=== PATIENT | male | born 1945 | race Caucasian/White ===

== ENCOUNTER 2023-06-22 13:06 | Emergency (ER) | payer MEDICARE, SELFPAY ==
[2023-06-22 13:07] VITALS: BP 140/80; PULSE 73; RESP 18; TEMP 36.3; O2SAT 94
--- NOTE | 2023-06-22 14:40 | EKG12_ITS ---
Test Reason : FALL Blood Pressure : / mmHG Vent. Rate : 061 BPM Atrial Rate : 061 BPM P-R Int : 172 ms QRS Dur : 116 ms QT Int : 450 ms P-R-T Axes : 045 -23 032 degrees QTc Int : 453 ms Normal sinus rhythm Left ventricular hypertrophy with QRS widening and repolarization abnormality ( R in aVL , Francis pr oduct ) Cannot rule out Septal infarct , age undetermined Abnormal ECG Confirmed by Basim Guan ([id number]), editor news DEEP GARCIA ([id number]) on 06/24/2023 11:02:11 AM Referred By: SARAHI Confirmed By:Basim Guan
--- NOTE | 2023-06-22 14:40 | RAD_ITS ---
INDICATION: injury EXAMINATION/TECHNIQUE: X-RAY - XR Spine Lumbar 2 or 3 Views COMPARISON: No relevant prior comparison study available FINDINGS: VERTEBRAE: Preserved vertebral body height. No fracture. No spondylolisthesis. Preservation of the normal lumbar lordosis. No substantial scoliosis. DISCS: Narrowing of the disc spaces of L3-4, L4-L5 and L5-S1. Endplate spondylosis at multiple levels. INCLUDED ABDOMEN: Atherosclerotic calcifications of the abdominal aorta. RAD/Lumbar Spine 2 or 3 Views IMPRESSION: 1. Degenerative changes of the lumbar spine. 2. No evidence of acute fracture. Electronically Signed: Ed Robles MD at 15:31 EDT ,
--- NOTE | 2023-06-22 14:40 | RAD_ITS ---
INDICATION: injury EXAMINATION/TECHNIQUE: X-RAY - LEFT XR Shoulder Min 2 Views 5 VIEWS COMPARISON: No relevant prior comparison study available FINDINGS: SOFT TISSUES: No soft tissue swelling or gas. No radiopaque foreign body. BONES/JOINTS: No acute fracture or subluxation. Narrowing of the space between the acromion process and humeral head which may impinge on the rotator cuff.. No sclerotic or destructive changes observed. RAD/Shoulder min 2 Views IMPRESSION: Degenerative changes. No evidence of acute fracture. Electronically Signed: Ed Robles MD at 15:35 EDT ,
--- NOTE | 2023-06-22 14:41 | ED.VIS.FALL ---
HPI HPI - Fall History of Present Illness Chief Complaint: Fall Informant: patient Narrative Narrative: Patient presents for evaluation after fall at home. He reportedly fell at home last evening injuring his left shoulder and his back. His neighbor drove him to the hospital today and states that he has been falling more frequently. Patient states he gets lightheaded and falls. He is a poor historian. His primary care physician is in [place] and I do not have prior records on him here. He does report a history of seizures that he takes medication for daily. He does not know the name of the medication. [facility] Medical History Seizures Allergy/AdvReac Type Severity Reaction Status Date / Time No Known Allergies Allergy Verified 06/22/23 13:09 Social History Smoking Status: Former smoker ROS ROS ED Constitutional Constitutional ED: Denies chills or fever(s) Eyes Eyes: Denies discharge from eye(s) ENT ENT ED: Denies discharge from eye(s), rhinorrhea or sore throat Cardiovascular Cardiovascular: Denies chest pain or palpitations Respiratory/Chest Respiratory/Chest: Reports cough; Denies dyspnea Gastrointestinal Gastrointestinal: Denies abdominal pain, diarrhea, nausea or vomiting Genitourinary Genitourinary ED: Denies dysuria Musculoskeletal Musculoskeletal: Reports back pain and extremity pain Integumentary Denies Abrasions or rash Neurologic Neurologic: Denies headache(s) or weakness Psychiatric Psychiatric: Denies anxiety or depression Allergic/Immunologic Allergic/Immunologic ED: Denies lip swelling or urticaria EXAM Physical Exam Const Vital Signs: 06/22/23 13:07 06/22/23 13:56 06/22/23 15:10 Temperature 97.4 F L Temperature Source Temporal Pulse Rate 73 85 Respiratory Rate 18 22 H Respiratory Effort Normal Non-Labored Respiratory Depth Normal Respiratory Pattern Normal Normal Blood Pressure 140/80 H Blood Pressure Mean 100 Pulse Ox 94 Oxygen Delivery Method Room Air Room Air 06/22/23 16:17 Temperature Temperature Source Pulse Rate 70 Respiratory Rate 22 H Respiratory Effort Respiratory Depth Respiratory Pattern Blood Pressure 133/86 H Blood Pressure Mean 101 Pulse Ox 94 Oxygen Delivery Method Room Air Positive well nourished and well developed General Appearance ED: well developed HEENT HEENT Narrative: Small scabbed wound to the left parietal scalp from fall 2 weeks ago. Eyes EOMs intact bilaterally Neck full ROM Neck Narrative: No C-spine tenderness. Chest Wall inspection of chest normal and palpation of chest normal Resp normal respiratory effort Resp Narrative: Mild rales bilaterally. Cardio regular rate and regular rhythm GI non-tender and non-distended Back/Spine Back/Spine Narrative: Mild tenderness to the paraspinal region of the lumbar spine. No abrasions or ecchymosis. No midline tenderness. Extremity Extremity Narrative: Mild tenderness to palpation of the left shoulder. No obvious deformity. Able to raise his arm above his head without difficulty. Neuro oriented x3, moves all extremities and no sensory deficits noted Motor Exam: strength 5/5 throughout Psych mental status grossly normal MDM MDM MDM Narrative Medical decision making narrative: Given the patient has had increased frequency of falls recently, we will obtain an EKG and place patient on nut tightener. Labwork obtained to evaluate for leukocytosis, anemia, and electrolyte derangement. Will obtain a chest x-ray along with left shoulder and lumbar spine x-rays given his fall and injury along with his rales and cough. He will be given a DuoNeb treatment. History & Record Review Discussion w/independent historian: Patient and Friend Lab Data Attestation: I reviewed the patient's lab results. Labs: Laboratory Results - last 24 hr 06/22/23 06/22/23 14:58 15:48 WBC 10.7 RBC 4.71 Hgb 12.7 L Hct 40.7 MCV 86.4 MCH 27.0 MCHC 31.2 L RDW Std Deviation 44.8 H RDW Coeff of Jarod 14.0 Plt Count 298 MPV 9.2 Immature Gran % (Auto) 1.100 H Neut % (Auto) 81.9 H Lymph % (Auto) 9.0 L Warren % (Auto) 7.1 Eos % (Auto) 0.4 Baso % (Auto) 0.5 Absolute Neuts (auto) 8.7 H Absolute Lymphs (auto) 0.96 Nucleated RBC % 0 Sodium 137 Potassium 3.9 Chloride 103 Carbon Dioxide 25.0 Anion Gap 9 BUN 23 H Creatinine 1.14 Est GFR (MDRD) Af Amer 80 Est GFR (MDRD) Non-Af 66 BUN/Creatinine Ratio 20.2 H Glucose 103 Calcium 8.8 Urine Color Yellow Urine Clarity Clear Urine pH 5.0 Ur Specific Divide 1.015 Urine Protein 100 H Urine Glucose (UA) Normal Urine Ketones 5 H Urine Occult Blood 10 H Urine Nitrite Negative Urine Bilirubin Negative Urine Urobilinogen 4 H Ur Leukocyte Esterase Negative Radiography Diagnostic Testing: Clinical Impression(s) from Imaging Studies Lumbar Spine X-Ray 06/22/23 14:40 IMPRESSION: 1. Degenerative changes of the lumbar spine. 2. No evidence of acute fracture. Electronically Signed: Ed Robles MD at 15:31 EDT Reading Location ID and State: [facility] / [place] Tel , Service support , Shoulder X-Ray 06/22/23 14:40 IMPRESSION: Degenerative changes. No evidence of acute fracture. Electronically Signed: Ed Robles MD at 15:35 EDT Reading Location ID and State: [facility] / [place] Tel , Service support , Chest X-Ray 06/22/23 15:10 IMPRESSION: 1. COPD changes. 2. No active pulmonary disease. Electronically Signed: Ed Robles MD at 15:30 EDT , Treatment and Re-Evaluation Narrative: CBC reveals a white count of 10.7 with 81% neutrophils. Hemoglobin is 12.7. Chemistry studies reveal a BUN of 23 and a creatinine 1.14. Glucose is 103. Urinalysis reveals no evidence of infection. Lumbar spine x-ray per my interpretation reveals chronic arthritic changes with no acute fracture. Radiology interpretation reviewed and agrees. Left shoulder x-rays per my interpretation reveal no fracture or dislocation. Radiology interpretation reviewed and agrees. Chest x-ray reveals chronic changes with no focal infiltrate per my interpretation. Radiology interpretation reviewed and agrees. EKG is sinus rhythm at 61 bpm with LVH. No acute ischemia. On repeat evaluation patient resting comfortably and test results are discussed with him. He is comfortable with outpatient follow-up. Return instructions given. Discharge Plan Triage Chief Complaint: Fall ED Provider: María Quiroga Dx/Rx/DC Orders Clinical Impression: Back contusion, Fall, Contusion of left shoulder Instructions: ED Back Contusion, ED Contusion, Upper Extremity, ED Fall with Uncertain Cause, ED Fall Prevention Primary Care Provider: Jasmin Flores,Out of Referrals: Jasmin Doctor,Out of [Primary Care Provider] - 1-2 Weeks Disposition Disposition: Home, Self Care
--- NOTE | 2023-06-22 14:53 | NURSING ---
NO OLD EKGS
[2023-06-22] MEDS: Ipratropium/Albuterol Sulfate 3 ML AMPUL.NEB INHALATION (14:57)
[2023-06-22] MEDS: 0.9% Normal Saline (1000mL) 1,000 ML 150 ML IV (14:57)
[2023-06-22 15:08] LABS: Absolute Lymphocyte Count 0.96 X10^3/uL (0.83-4.51); Absolute Neutrophil Count 8.7 X10^3/uL (2.0-7.7); Basophil# 0.05 X10^3/uL; Basophil% 0.5 % (0-1); Eosinophil# 0.04 X10^3/uL; Eosinophils% 0.4 % (0-5); Hematocrit 40.7 % (40-54); Hemoglobin 12.7 g/dL (13.0-16.5); Lymphocyte # 0.96 X10^3/ul (0.83-4.51); Mean Corp Hgb Conc 31.2 g/dL (32-36); Mean Corpuscular Volume 86.4 fL (80-94); Mean Platelet Vol. 9.2 fl (6.2-12.0); Monocyte# 0.76 X10^3/uL; Monocyte% 7.1 % (0-10); NRBC Flagged by Analyzer 0 % (0-5); Neutrophil # 8.73 X10^3/uL (2.7-7.7); Neutrophil % 81.9 % (47-70); Platelet Count 298 K/mm3 (150-450); RBC Distribution Width SD 44.8 fl (35.1-43.9); Red Blood Count 4.71 M/mm3 (4.6-6.2); White Blood Count 10.7 K/mm3 (4.4-11.0)
[2023-06-22 15:10] VITALS: PULSE 85; RESP 22
--- NOTE | 2023-06-22 15:10 | RAD_ITS ---
INDICATION: cough EXAMINATION/TECHNIQUE: X-RAY - XR Chest 2 Views COMPARISON: No relevant prior comparison study available FINDINGS: LINES/DEVICES: None. LUNGS: The lungs are somewhat hyperinflated with COPD changes. Scattered nodular densities likely due to old granulomatous disease. Mild stranding/scarring in the right upper lobe. No evidence of pleural effusions. MEDIASTINUM AND CARDIOVASCULAR STRUCTURES: Cardiac silhouette not enlarged. Central airways and mediastinal contour are unremarkable. BONES AND SOFT TISSUES: No demonstrated acute osseous changes. RAD/Chest PA and Lateral IMPRESSION: 1. COPD changes. 2. No active pulmonary disease. Electronically Signed: Ed Robles MD at 15:30 EDT ,
[2023-06-22 15:25] LABS: Anion Gap 9 (5-15); BUN 23 mg/dL (7-18); BUN/Creat Ratio 20.2 RATIO (10-20); Calcium,Total 8.8 mg/dL (8.5-10.1); Chloride 103 mmol/L (98-107); Creatinine, Serum 1.14 mg/dL (0.70-1.30); EST Glomerular Filtration Rate 66 mL/min (>60); Est Glom Filt Rate - Afr Amer 80 mL/min (>60); Glucose 103 mg/dL (74-106); Potassium 3.9 mmol/L (3.5-5.1); Sodium Level 137 mmol/L (136-145)
[2023-06-22 15:51] LABS: Bacteria 0 SEEN /hpf (None Seen); Mucous, Urine 0 SEEN /hpf (<or=2+); Red Blood Cells-Urine 0 SEEN /hpf (0-5); Squamous Epithelial Cells - UA 0 SEEN /hpf (0-5); White Blood Cells 0 SEEN /hpf (0-5)
[2023-06-22 16:09] LABS: Glucose, Dipstick Normal (Normal); Ketone-Dipstick 5 mg/dl (Negative); Leukocyte Esterase-Dipstick Negative /ul (Negative); Nitrite-Dipstick Negative (Negative); Occult Blood-Urine 10 /ul (Negative); Protein-Dipstick 100 mg/dl (Negative); Specific Gravity, Urine 1.015 (1.002-1.030); Urine Bilirubin Dipstick Negative (Negative); Urine Urobilinogen 4 mg/dl (Normal)
[2023-06-22 16:10] LABS: Color, Urine Yellow (Yellow); Urine Clarity Clear (Clear)
[2023-06-22 16:17] VITALS: BP 133/86; PULSE 70; RESP 22; O2SAT 94
[2023-06-22 16:44] VITALS: BP 133/78; PULSE 78; RESP 16; TEMP 36.4; O2SAT 99
== END 2023-06-22 16:46 | disposition home or self-care (01) ==
PROVIDERS: Emergency Provider Emergency Medicine; Visit Provider Emergency Medicine
DX: S20.229A Contusion of unspecified back wall of thorax, initial encounter (principal); S40.012A Contusion of left shoulder, initial encounter; W19.XXXA Unspecified fall, initial encounter; R05.9 Cough, unspecified; R29.6 Repeated falls; Z87.891 Personal history of nicotine dependence
CPT/HCPCS: 99285; 71046; 72100; 73030; 80048; 81001; 85025; 93005; 94640; J7030; P9612; A4216

== ENCOUNTER 2023-06-24 10:17 | Inpatient (IN) | payer MEDICARE, SELFPAY ==
[2023-06-24] VITALS (8 sets, daily range): BP systolic 144–157; BP diastolic 73–89; PULSE 62–73; RESP 15–24; TEMP 36.2–36.9; O2SAT 92–95; BMI 23.9; BMI 22.4
--- NOTE | 2023-06-24 10:53 | EX.ED.DYSGE1 ---
HPI History of Present Illness Chief Complaint: Weakness Informant: patient Onset/Context/Timing Onset: Today Narrative Narrative: Patient presents via EMS after another fall. Patient was seen by myself 2 days ago with recent falls. Workup was unremarkable. Patient states he got up today and his legs gave out on him and he fell to the ground. He is complaining of left hip pain. He denies striking his head or loss of consciousness. He continues to have a chronic cough. No fever or chills. PFSH PFSH Medical History GERD (gastroesophageal reflux disease) Seizures Allergy/AdvReac Type Severity Reaction Status Date / Time No Known Allergies Allergy Verified 06/24/23 10:21 Surgical History Hx of eye surgery Social History Smoking Status: Former smoker ROS ROS ED Constitutional Constitutional ED: Denies chills or fever(s) Eyes Eyes: Denies change in vision or discharge from eye(s) ENT ENT ED: Denies discharge from eye(s), rhinorrhea or sore throat Cardiovascular Cardiovascular: Denies chest pain or palpitations Respiratory/Chest Respiratory/Chest: Reports cough; Denies dyspnea Gastrointestinal Gastrointestinal: Denies abdominal pain, diarrhea, nausea or vomiting Genitourinary Genitourinary ED: Denies dysuria Musculoskeletal Musculoskeletal: Reports extremity pain; Denies back pain Integumentary Denies Abrasions or rash Neurologic Neurologic: Reports weakness; Denies headache(s) Psychiatric Psychiatric: Denies anxiety or depression Allergic/Immunologic Allergic/Immunologic ED: Denies lip swelling or urticaria EXAM Physical Exam Const Vital Signs: 06/24/23 10:18 06/24/23 10:20 06/24/23 10:57 Temperature 97.8 F 97.8 F Temperature Source Temporal Temporal Pulse Rate 66 66 Respiratory Rate 24 H 24 H Respiratory Pattern Normal Blood Pressure 157/89 H 157/89 H Blood Pressure Mean 111 111 Pulse Ox 95 95 Oxygen Delivery Method Room Air Room Air 06/24/23 11:06 Temperature Temperature Source Pulse Rate 65 Respiratory Rate 20 H Respiratory Pattern Normal Blood Pressure Blood Pressure Mean Pulse Ox Oxygen Delivery Method Positive well nourished and well developed General Appearance ED: well developed HEENT Reports moist mucous membranes Eyes EOMs intact bilaterally Chest Wall inspection of chest normal and palpation of chest normal Resp normal respiratory effort Resp Narrative: Rales bilaterally. Cardio regular rate and regular rhythm GI non-tender Palpation: soft Extremity Extremity Narrative: Mild tenderness all patient the left hip. No pain with logroll. Equal leg lengths. Neuro oriented x3 and no sensory deficits noted Psych mental status grossly normal Skin no rashes or lesions noted MDM MDM MDM Narrative Medical decision making narrative: Patient be given DuoNeb treatment. IV line established. Labwork obtained to evaluate for leukocytosis, anemia, and electrolyte derangement. X-ray of the pelvis and left hip obtained to evaluate for potential fracture. History & Record Review Discussion w/independent historian: Patient Additional record(s) reviewed:: Prior ED visit and Prior labs Lab Data Attestation: I reviewed the patient's lab results. Labs: Laboratory Results - last 24 hr 06/24/23 11:15 WBC 8.1 RBC 4.60 Hgb 12.2 L Hct 39.6 L MCV 86.1 MCH 26.5 L MCHC 30.8 L RDW Std Deviation 44.4 H RDW Coeff of Jarod 14.0 Plt Count 361 MPV 9.0 Immature Gran % (Auto) 1.400 H Neut % (Auto) 76.3 H Lymph % (Auto) 10.2 L [place] % (Auto) 10.4 H Eos % (Auto) 1.2 Baso % (Auto) 0.5 Absolute Neuts (auto) 6.2 Absolute Lymphs (auto) 0.83 Nucleated RBC % 0 Sodium 139 Potassium 4.1 Chloride 107 Carbon Dioxide 27.0 Anion Gap 5 BUN 13 Creatinine 0.99 Estim Creat Clear Calc 71.74 Est GFR (MDRD) Af Amer 94 Est GFR (MDRD) Non-Af 78 BUN/Creatinine Ratio 13.1 Glucose 112 H Calcium 8.9 Radiography Diagnostic Testing: Clinical Impression(s) from Imaging Studies Hip/Pelvis X-Ray 06/24/23 12:03 IMPRESSION: No acute abnormality is seen. Electronically Signed: Tavo Kramer MD at 12:15 EDT , Treatment and Re-Evaluation :: Patient swab for influenza and RSV is negative, however his COVID test is positive. He reports a cough for quite some time but states it has recently worsened. Chest x-ray 2 days ago did not reveal infiltrate. CBC reveals normal white count 8.1 with a hemoglobin of 12.2. This is consistent with his prior values. Chemistry studies unremarkable. Left hip and pelvis x-ray per my interpretation feels no obvious evidence of fracture. Radiology interpretation reviewed and agrees. I did discuss with the patient that he has had increased falls with weakness. He does feel that he needs admitted for physical therapy and possible rehab to get his strength built back up. Friend at bedside is in agreement with the plan. I will speak with the hospitalist. Discharge Plan Dx/Rx/DC Orders Clinical Impression: COVID-19, Falls, Weakness, Contusion of hip, left Disposition Disposition: Acute Care Hospital [facility]
[2023-06-24] MEDS: Ipratropium/Albuterol Sulfate 3 ML AMPUL.NEB INHALATION (11:05)
[2023-06-24 11:25] LABS: Absolute Lymphocyte Count 0.83 X10^3/uL (0.83-4.51); Absolute Neutrophil Count 6.2 X10^3/uL (2.0-7.7); Basophil# 0.04 X10^3/uL; Basophil% 0.5 % (0-1); Eosinophils% 1.2 % (0-5); Hematocrit 39.6 % (40-54); Hemoglobin 12.2 g/dL (13.0-16.5); Lymphocyte # 0.83 X10^3/ul (0.83-4.51); Lymphocyte % 10.2 % (19-41); Mean Corp Hgb Conc 30.8 g/dL (32-36); Mean Corpuscular Hgb 26.5 pg (27.0-32.0); Mean Corpuscular Volume 86.1 fL (80-94); Monocyte# 0.84 X10^3/uL; Monocyte% 10.4 % (0-10); NRBC Flagged by Analyzer 0 % (0-5); Neutrophil # 6.19 X10^3/uL (2.7-7.7); Neutrophil % 76.3 % (47-70); Platelet Count 361 K/mm3 (150-450); RBC Distribution Width SD 44.4 fl (35.1-43.9); White Blood Count 8.1 K/mm3 (4.4-11.0)
[2023-06-24 11:41] LABS: Anion Gap 5 (5-15); BUN 13 mg/dL (7-18); BUN/Creat Ratio 13.1 RATIO (10-20); Calcium,Total 8.9 mg/dL (8.5-10.1); Chloride 107 mmol/L (98-107); Creatinine, Serum 0.99 mg/dL (0.70-1.30); EST Glomerular Filtration Rate 78 mL/min (>60); Est Glom Filt Rate - Afr Amer 94 mL/min (>60); Estimated Creatinine Clearance 71.74 ml/min; Glucose 112 mg/dL (74-106); Potassium 4.1 mmol/L (3.5-5.1); Sodium Level 139 mmol/L (136-145)
--- NOTE | 2023-06-24 12:03 | RAD_ITS ---
STUDY: X-RAY - PELVIS AND LEFT HIP REASON FOR EXAM: Male, 77 years old. Fall. Unable to bear weight. TECHNIQUE: 3 views of the pelvis and hip. COMPARISON: None. FINDINGS: There is a non-specific bowel gas pattern. Normal visualized soft tissue structures. Normal bilateral iliac wings, sacroiliac joints and visualized sacrum. Normal bilateral superior and inferior pubic rami. Normal pubic symphysis. Normal bilateral ischial tuberosities. Normal visualized femoral head. Normal acetabulum. There is mild articular joint space narrowing of the hip. RAD/HIP, UNI W/ Pelvis 2-3 Views IMPRESSION: No acute abnormality is seen. Electronically Signed: Tavo Kramer MD at 12:15 EDT ,
--- NOTE | 2023-06-24 17:24 | PCM.HP.STD ---
HPI - General General Date of Admission: 06/24/23 Date of Service: 06/24/23 Chief Complaint: Generalized weakness, debility HPI Narrative BROEDRICK SKINNER, is a 77 M who presents to the emergency room [facility] after sustaining a fall at home due to severe weakness. Patient lives by himself. Patient complains of a nonproductive cough at the present time he states he has been sick approximately 2 days. Workup in the emergency room showed a normal white blood cell count, hemoglobin was 12.2 chemistry profile was unremarkable. Patient's chest x-ray showed evidence of COPD changes but no active infiltrate. Patient's COVID-19 test was positive. Patient will be admitted to [place] [id number] for COVID-19 infection, he will receive IV remdesivir and dexamethasone, physical therapy will see the patient as well as Occupational Therapy. He may need temporary placement in a alf facility. [facility] Medical History (Updated 06/24/23 @ 12:[address] María Quiroga MD) Former smoker GERD (gastroesophageal reflux disease) Seizures Home Medications protonix 20 mg PO DAILY 06/24/23 [History Last Taken Unknown] Allergy/AdvReac Type Severity Reaction Status Date / Time No Known Allergies Allergy Verified 06/24/23 10:21 Surgical History (Updated 06/24/23 @ 15:15 by Kathie Christina) History of appendectomy Hx of eye surgery Social History Smoking Status: Former smoker ROS Constitutional Constitutional: Reports fatigue, malaise and weakness; Denies anorexia, change in weight, fever(s) or night sweats Eyes Eyes: Denies blurry vision, change in vision, discharge from eye(s) or eye pain Cardiovascular Cardiovascular: Denies chest pain, claudication, edema or palpitations Respiratory/Chest Respiratory/Chest: Denies cough, hemoptysis, shortness of breath at rest or shortness of breath with exertion Gastrointestinal Gastrointestinal: Denies abdominal pain, constipation, diarrhea, hematemesis, hematochezia, melena, nausea or vomiting Genitourinary Genitourinary: Denies difficulty urinating, dysuria, hematuria, urinary frequency, urinary hesitancy, urinary incontinence or urinary urgency Musculoskeletal Musculoskeletal: Denies back pain, joint pain, joint stiffness, joint swelling, myalgias or neck pain Neurologic Neurologic: Denies abnormal gait, abnormal speech, dizziness, focal weakness, headache(s), loss of vision, numbness, other visual disturbances, paresthesias, syncope or tingling Psychiatric Psychiatric: Denies anxiety, cognitive impairment, depression, irritability, mood swings or suicidal ideation Endocrine Endocrinology: Denies change in body appearance, cold intolerance, excessive sweating, heat intolerance, polydipsia or polyuria Hematologic/Lymphatic Hematologic/Lymphatic: Denies none, anemia, easy bleeding, easy bruising or lymphadenopathy Allergic/Immunologic Allergic/Immunologic: Denies rhinitis, urticaria, eczemia or asthma Vital Signs Vital Signs Vital Signs: 06/24/23 10:18 06/24/23 10:20 06/24/23 10:57 Temperature 97.8 F 97.8 F Temperature Source Temporal Temporal Pulse Rate 66 66 Respiratory Rate 24 H 24 H Respiratory Effort Respiratory Pattern Normal Blood Pressure 157/89 H 157/89 H Blood Pressure Mean 111 111 Blood Pressure Source Blood Pressure Position Blood Pressure Location Pulse Ox 95 95 Oxygen Delivery Method Room Air Room Air 06/24/23 11:06 06/24/23 12:59 06/24/23 13:55 Temperature 97.1 F L 97.6 F L Temperature Source Temporal Pulse Rate 65 69 69 Respiratory Rate 20 H 15 21 H Respiratory Effort Respiratory Pattern Normal Blood Pressure 151/80 H 146/84 H Blood Pressure Mean 103 104 Blood Pressure Source Blood Pressure Position Blood Pressure Location Pulse Ox 92 93 Oxygen Delivery Method Room Air 06/24/23 16:09 06/24/23 16:14 Temperature 98.2 F Temperature Source Oral Pulse Rate 62 Respiratory Rate 18 Respiratory Effort Normal Respiratory Pattern Blood Pressure 144/83 H Blood Pressure Mean 103 Blood Pressure Source Monitor Blood Pressure Position Semi-Fowlers Blood Pressure Location Right Arm Pulse Ox 93 Oxygen Delivery Method Room Air Weight Weight: 76.9 kg Body Mass Index (BMI) 22.4 Physical Exam Const alert, oriented x3, no apparent distress, average body habitus and well nourished HEENT normocephalic, head/scalp atraumatic and hearing grossly normal bilaterally Neck supple, no JVD and no carotid bruits Resp normal respiratory effort, no retractions, no use of accessory muscles and clear to auscultation bilaterally Cardio regular rate, regular rhythm, S1 normal heart sound, S2 normal heart sound, no murmurs and no rub GI normal to inspection, nondistended, normoactive bowel sounds, soft to palpation, non-tender and non-distended Extremity normal to inspection and no clubbing, cyanosis or edema Neuro oriented x3, CN's II-XII intact bilaterally and moves all extremities Speech: speech normal Psych affect normal Results Lab / Micro Data 06/24/23 11:15 06/24/23 11:15 Labs: Laboratory Results - last 24 hr 06/24/23 11:15: WBC 8.1, RBC 4.60, Hgb 12.2 L, Hct 39.6 L, MCV 86.1, MCH 26.5 L, MCHC 30.8 L, RDW Std Deviation 44.4 H, RDW Coeff of Jarod 14.0, Plt Count 361, MPV 9.0, Immature Gran % (Auto) 1.400 H, Neut % (Auto) 76.3 H, Lymph % (Auto) 10.2 L, [place] % (Auto) 10.4 H, Eos % (Auto) 1.2, Baso % (Auto) 0.5, Absolute Neuts (auto) 6.2, Absolute Lymphs (auto) 0.83, Nucleated RBC % 0, Sodium 139, Potassium 4.1, Chloride 107, Carbon Dioxide 27.0, Anion Gap 5, BUN 13, Creatinine 0.99, Estim Creat Clear Calc 71.74, Est GFR (MDRD) Af Amer 94, Est GFR (MDRD) Non-Af 78, BUN/Creatinine Ratio 13.1, Glucose 112 H, Calcium 8.9 Micro: Microbiology 06/24/23 11:18 Mucosa - Nose SARS-CoV-2, Influenza & RSV (PCR) - Final SARS-CoV-2 (COVID 19 PCR) Imaging Radiology Impression Hip/Pelvis X-Ray 06/24/23 12:03 IMPRESSION: No acute abnormality is seen. Electronically Signed: Tavo Kramer MD at 12:15 EDT , Assessment & Plan Assessment/Plan (1) COVID-19: PLAN: Plan 1. Acute COVID-19 infection with generalized weakness-patient will be admitted to MedSurg 3, he will be placed on IV remdesivir, pulse ox will be monitored #2 generalized weakness secondary to COVID-19 infection-patient will be seen by PT and OT Total clinical time spent by myself addressing the patient's medical issues, reviewing all of his data, and collaborating with patient's care team: 55 minutes Charges/Coding Visit Charges Inpatient E&M: [id number] Init Hosp L2
[2023-06-24 18:12] LABS: Alkaline Phosphatase 77 U/L (45-117)
[2023-06-24] MEDS: 0.9% Saline Lock 10 ML Syringe IV (18:17)
[2023-06-24] MEDS: Remdesivir 200 MG in 0.9% Normal Saline (250mL Bag) 210 ML 250 MG IV (18:17)
[2023-06-24] MEDS: 0.9% Normal Saline (250mL Bag) 250 ML 15 ML IV (18:17)
[2023-06-24] MEDS: Heparin Injection (Vial) 5,000 UNIT/ML VIAL 5000 UNIT SC (20:19)
[2023-06-25 03:00] VITALS: BP 150/90; PULSE 71; RESP 18; TEMP 36.8; O2SAT 93
[2023-06-25 08:12] LABS: Hematocrit 39.9 % (40-54); Hemoglobin 12.6 g/dL (13.0-16.5); Mean Corp Hgb Conc 31.6 g/dL (32-36); Mean Corpuscular Hgb 26.8 pg (27.0-32.0); Mean Corpuscular Volume 84.7 fL (80-94); Mean Platelet Vol. 9.1 fl (6.2-12.0); Platelet Count 386 K/mm3 (150-450); RBC Distribution Width CV 13.8 % (11.6-14.6); RBC Distribution Width SD 42.8 fl (35.1-43.9); Red Blood Count 4.71 M/mm3 (4.6-6.2); White Blood Count 8.8 K/mm3 (4.4-11.0)
[2023-06-25 09:00] VITALS: BP 141/87; PULSE 84; RESP 16; TEMP 37.2; O2SAT 94
[2023-06-25] MEDS: Remdesivir 100 MG in 0.9% Normal Saline (250mL Bag) 230 ML 250 MG IV (09:35)
[2023-06-25] MEDS: Heparin Injection (Vial) 5,000 UNIT/ML VIAL 5000 UNIT SC ×2 (09:36→20:31)
[2023-06-25] MEDS: 0.9% Saline Lock 10 ML Syringe IV (09:36)
[2023-06-25 10:00] VITALS: O2SAT 94
[2023-06-25 10:17] LABS: ALB/GLOB Ratio 0.5 RATIO (0.9-2.4); AST(SGOT) 32 U/L (15-37); Alanine Aminotransfer ALT/SGPT 29 U/L (16-61); Albumin, Serum 2.6 g/dL (3.2-5.0); Alkaline Phosphatase 89 U/L (45-117); Anion Gap 7 (5-15); BUN 16 mg/dL (7-18); BUN/Creat Ratio 19.2 RATIO (10-20); Calcium,Total 9.1 mg/dL (8.5-10.1); Chloride 108 mmol/L (98-107); Creatinine, Serum 0.84 mg/dL (0.70-1.30); EST Glomerular Filtration Rate 95 mL/min (>60); Est Glom Filt Rate - Afr Amer 115 mL/min (>60); Estimated Creatinine Clearance 81.38 ml/min; Globulin 4.8 g/dL (2.2-4.2); Glucose 97 mg/dL (74-106); Protein, Total 7.4 g/dL (6.4-8.2); Sodium Level 139 mmol/L (136-145)
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
--- NOTE | 2023-06-25 11:57 | CASEMGMT ---
Discharge Planning A list of SNF & HH providers including quality and resource use data and consistent with the patient's preferred geographic region, medical needs, and insurance network was created in [facility] Guide.? This list was provided to the RN CHARISSE. Kathy Browning, Discharge Planning Asst.
--- NOTE | 2023-06-25 14:01 | CASEMGMT ---
Addendum entered by Kathy Browning 06/25/23 15:19: [facility] has accepted patient and will begin precert. [facility] notified to cancel referral. SW updated. Kathy Browning, Discharge Planning Asst. Original Note: Discharge Planning Referrals sent via [facility] to [facility] and [facility]. Kathy Browning, Discharge Planning Asst.
--- NOTE | 2023-06-25 14:28 | CASEMGMT ---
Social Work SW received referral for advance directives. SW met with pt and introduced self and role of SW. Pt requesting to compete advance directives. SW assisted pt in completing a living will and health care POA naming his friend Paulina Anthony. Originals given to pt and copies placed on pt chart. SHAYY Reinoso
--- NOTE | 2023-06-25 14:30 | CASEMGMT ---
Addendum entered by Ai Valdez 06/25/23 16:40: Social Work [facility] and precert has been started. Pt's MARY Gallardo updated on plan for pt to go to [facility] and she is agreeable. Nursing to notify pt that [facility]. Pt cannot discharge until insurance precert is obtained. Green sheet on chart to facility weekend discharge if precert comes back. Plan: [facility], pending insurance authorization SHAYY Reinoso Original Note: Social Work SW met with pt to discuss discharge plan. SW reviewed pts home situation and discussed recommendations from therapy. Pt is agreeable to short term placement at SNF prior to return home alone. A list of SNF providers including quality and resource use data and consistent with the patient?s preferred geographic region, medical needs, and insurance network [facility]. SW reviewed list with pt and Pt first choice of SNF provider is [facility]. Second choice is [facility]. DC assistant counsel updated and referrals to be made. SW also updated pt that Dr. Robson Zazueta is not accepting new pt's at this time. Pt states that if he cannot change PCP to Dr. Zazueta he does not want to change providers at all. A list of PCP's in pt's insurance network left in pt's room. Plan: [facility], pending acceptance and precert SHAYY Reinoso
[2023-06-25 15:53] VITALS: BP 140/88; PULSE 80; RESP 16; TEMP 37.2; O2SAT 93
--- NOTE | 2023-06-25 16:58 | PCM.PN.HOSP ---
Reason for Visit Reason for Visit: Diagnoses COVID-19 (06/24/23) Subjective Subjective Patient was seen and examined today, he is still not requiring any oxygen. He told social work case manager he would like to go to an extended care facility for inpatient rehab services. Objective Data Objective Data Vital Signs: Vital Signs Temp Pulse Resp BP Pulse Ox O2 Del Method 99.0 F 80 16 140/88 H 93 Room Air 06/25/23 15:53 06/25/23 15:53 06/25/23 15:53 06/25/23 15:53 06/25/23 15:53 06/25/23 15:53 Oxygen Delivery Method Room Air Weight: 76.9 kg Body Mass Index (BMI) 22.4 Intake & Output: Intake and Output for Last 24 Hours 06/23/23 06/24/23 06/25/23 23:59 23:59 23:59 Intake Total 750 / 750 500 / 500 Output Total 200 / 200 Balance 550 / 550 500 / 500 Lab / Micro Data 06/25/23 07:53 06/25/23 07:53 Labs: Laboratory Results - last 24 hr 06/24/23 11:15: Alkaline Phosphatase 77 06/25/23 07:53: WBC 8.8, RBC 4.71, Hgb 12.6 L, Hct 39.9 L, MCV 84.7, MCH 26.8 L, MCHC 31.6 L, RDW Std Deviation 42.8, RDW Coeff of Jarod 13.8, Plt Count 386, MPV 9.1, Sodium 139, Potassium 4.0, Chloride 108 H, Carbon Dioxide 24.0, Anion Gap 7, BUN 16, Creatinine 0.84, Estim Creat Clear Calc 81.38, Est GFR (MDRD) Af Amer 115, Est GFR (MDRD) Non-Af 95, BUN/Creatinine Ratio 19.2, Glucose 97, Calcium 9.1, Total Bilirubin 0.50, AST 32, ALT 29, Alkaline Phosphatase 89, Total Protein 7.4, Albumin 2.6 L, Globulin 4.8 H, Albumin/Globulin Ratio 0.5 L Micro: Microbiology 06/24/23 11:18 Mucosa - Nose SARS-CoV-2, Influenza & RSV (PCR) - Final SARS-CoV-2 (COVID 19 PCR) Physical Exam Narrative alert, oriented x3, no apparent distress, average body habitus and well nourished HEENT normocephalic, head/scalp atraumatic and hearing grossly normal bilaterally Neck supple, no JVD and no carotid bruits Resp normal respiratory effort, no retractions, no use of accessory muscles and clear to auscultation bilaterally Cardio regular rate, regular rhythm, S1 normal heart sound, S2 normal heart sound, no murmurs and no rub GI normal to inspection, nondistended, normoactive bowel sounds, soft to palpation, non-tender and non-distended Extremity normal to inspection and no clubbing, cyanosis or edema Neuro oriented x3, CN's II-XII intact bilaterally and moves all extremities Speech: speech normal Psych affect normal Assessment & Plan Assessment/Plan (1) COVID-19: PLAN: Plan 1. Acute COVID-19 infection with generalized weakness-patient will be admitted to [facility] 3, he will be placed on IV remdesivir, pulse ox will be monitored #2 generalized weakness secondary to COVID-19 infection-patient will be seen by PT and OT Total clinical time spent by myself addressing the patient's medical issues, reviewing all of his data, and collaborating with patient's care team: 25 minutes Charges/Coding Visit Charges Inpatient E&M: 50052 Subs Hosp L1
[2023-06-25 20:26] VITALS: BP 146/89; PULSE 69; RESP 15; TEMP 37.2; O2SAT 93
[2023-06-25 22:00] VITALS: RESP 15
[2023-06-26 03:00] VITALS: BP 162/89; PULSE 74; RESP 15; TEMP 36.6; O2SAT 94
--- NOTE | 2023-06-26 10:10 | PN.HOSP_ITS ---
Reason for Visit Reason for Visit: Diagnoses COVID-19 (06/24/23) Subjective Subjective Patient was seen and examined today, he does not complain of any shortness of breath or cough, he denies any fevers or chills Objective Data Objective Data Vital Signs: Vital Signs Temp Pulse Resp BP Pulse Ox O2 Del Method 97.9 F 74 15 162/89 H 94 Room Air 06/26/23 03:00 06/26/23 03:00 06/26/23 03:00 06/26/23 03:00 06/26/23 03:00 06/26/23 03:00 Oxygen Delivery Method Room Air Weight: 76.9 kg Body Mass Index (BMI) 22.4 Intake & Output: Intake and Output for Last 24 Hours 06/24/23 06/25/23 06/26/23 23:59 23:59 23:59 Intake Total 750 / 750 1500 / 1700 200 / 200 Output Total 200 / 200 Balance 550 / 550 1500 / 1700 200 / 200 Lab / Micro Data 06/25/23 07:53 06/25/23 07:53 Labs: Laboratory Results - last 24 hr 06/25/23 07:53: Sodium 139, Potassium 4.0, Chloride 108 H, Carbon Dioxide 24.0, Anion Gap 7, BUN 16, Creatinine 0.84, Estim Creat Clear Calc 81.38, Est GFR (MDRD) Af Amer 115, Est GFR (MDRD) Non-Af 95, BUN/Creatinine Ratio 19.2, Glucose 97, Calcium 9.1, Total Bilirubin 0.50, AST 32, ALT 29, Alkaline Phosphatase 89, Total Protein 7.4, Albumin 2.6 L, Globulin 4.8 H, Albumin/Globulin Ratio 0.5 L Micro: Microbiology 06/24/23 11:18 Mucosa - Nose SARS-CoV-2, Influenza & RSV (PCR) - Final SARS-CoV-2 (COVID 19 PCR) Physical Exam Const alert, oriented x3, no apparent distress and healthy appearing General Appearance: cooperative, well kempt and well developed Orientation / Consciousness: awake, oriented to person, oriented to place and oriented to time HEENT normocephalic and moist oral mucous membranes Eyes PERRL, EOMs intact bilaterally and conjunctivae normal Neck supple, no JVD, thyroid normal and no carotid bruits General: trachea midline Resp normal respiratory effort and clear to auscultation bilaterally Auscultation: Negative for rales, rhonchi or wheezes Cardio regular rate, regular rhythm, no murmurs, no rub and no gallops GI normal to inspection, nondistended, normoactive bowel sounds, soft to palpation, non-tender and non-distended Extremity no clubbing, cyanosis or edema Skin no rashes or lesions noted General Skin Exam: no breakdown Neuro oriented x3, CN's II-XII intact bilaterally, no focal motor deficits and no sensory deficits noted Sensorium / Orientation: awake and alert Speech: speech normal Psych affect normal Assessment & Plan Assessment/Plan (1) COVID-19: PLAN: Plan 1. Acute COVID-19 infection with generalized weakness-patient remains on room air at this time, I will continue his remdesivir, he will need temporary placement in a detention facility for short-term rehab services #2 generalized weakness secondary to COVID-19 infection-patient is being seen by PT and OT Total clinical time spent by myself addressing the patient's medical issues, rev iewing all of his data, and collaborating with patient's care team: 25 minutes Charges/Coding Visit Charges Inpatient E&M: 02547 [facility] Hosp L1
[2023-06-26 10:14] VITALS: BP 106/64; PULSE 83; RESP 18; TEMP 36.6; O2SAT 92
[2023-06-26] MEDS: Remdesivir 100 MG in 0.9% Normal Saline (250mL Bag) 230 ML 250 MG IV (10:27)
[2023-06-26] MEDS: Heparin Injection (Vial) 5,000 UNIT/ML VIAL 5000 UNIT SC ×2 (10:27→20:28)
[2023-06-26] MEDS: 0.9% Saline Lock 10 ML Syringe IV ×2 (10:50→14:58)
[2023-06-26 14:15] VITALS: BP 108/69; PULSE 71; RESP 18; TEMP 37.1; O2SAT 95
[2023-06-26 17:58] VITALS: BP 114/69; PULSE 75; RESP 18; TEMP 37.1; O2SAT 93
[2023-06-26 20:22] VITALS: BP 113/73; PULSE 74; RESP 15; TEMP 37.2; O2SAT 93
[2023-06-26 20:32] VITALS: RESP 15; O2SAT 93
[2023-06-27 02:00] VITALS: RESP 15
[2023-06-27 03:00] VITALS: BP 136/80; PULSE 68; RESP 15; TEMP 36.8; O2SAT 92
[2023-06-27 10:00] VITALS: BP 120/68; PULSE 80; RESP 18; TEMP 36.6; O2SAT 94
[2023-06-27] MEDS: Heparin Injection (Vial) 5,000 UNIT/ML VIAL 5000 UNIT SC ×2 (10:05→20:46)
[2023-06-27] MEDS: Remdesivir 100 MG in 0.9% Normal Saline (250mL Bag) 230 ML 250 MG IV (10:05)
[2023-06-27] MEDS: 0.9% Saline Lock 10 ML Syringe IV (10:06)
[2023-06-27 14:37] VITALS: BP 112/72; PULSE 71; RESP 18; TEMP 36.6; O2SAT 94
--- NOTE | 2023-06-27 15:35 | PN.HOSP_ITS ---
Reason for Visit Reason for Visit: Diagnoses COVID-19 (06/24/23) Subjective Subjective Patient was seen and examined today, he has no specific complaints to this examiner. Patient is due to receive 1 more dose of remdesivir tomorrow, I have decided to go ahead and given this dosage. Patient is not on any oxygen, he does not complain of any shortness of breath or chest discomfort. Objective Data Objective Data Vital Signs: Vital Signs Temp Pulse Resp BP Pulse Ox O2 Del Method 97.8 F 71 18 112/72 94 Room Air 06/27/23 14:37 06/27/23 14:37 06/27/23 14:37 06/27/23 14:37 06/27/23 14:37 06/27/23 14:37 Oxygen Delivery Method Room Air Weight: 76.9 kg Body Mass Index (BMI) 22.4 Intake & Output: Intake and Output for Last 24 Hours 06/25/23 06/26/23 06/27/23 23:59 23:59 23:59 Intake Total 1500 / 1700 1000 / 1000 250 / 250 Balance 1500 / 1700 1000 / 1000 250 / 250 Lab / Micro Data 06/25/23 07:53 06/25/23 07:53 Micro: Microbiology 06/24/23 11:18 Mucosa - Nose SARS-CoV-2, Influenza & RSV (PCR) - Final SARS-CoV-2 (COVID 19 PCR) Physical Exam Narrative alert, oriented x3, no apparent distress and healthy appearing General Appearance: cooperative, well kempt and well developed Orientation / Consciousness: awake, oriented to person, oriented to place and oriented to time HEENT normocephalic and moist oral mucous membranes Eyes PERRL, EOMs intact bilaterally and conjunctivae normal Neck supple, no JVD, thyroid normal and no carotid bruits General: trachea midline Resp normal respiratory effort and clear to auscultation bilaterally Auscultation: Negative for rales, rhonchi or wheezes Cardio regular rate, regular rhythm, no murmurs, no rub and no gallops GI normal to inspection, nondistended, normoactive bowel sounds, soft to palpation, non-tender and non-distended Extremity no clubbing, cyanosis or edema Skin no rashes or lesions noted General Skin Exam: no breakdown Neuro oriented x3, CN's II-XII intact bilaterally, no focal motor deficits and no sensory deficits noted Sensorium / Orientation: awake and alert Speech: speech normal Psych affect normal Assessment & Plan Assessment/Plan (1) COVID-19: PLAN: Plan 1. Acute COVID-19 infection with generalized weakness-patient remains on room air at this time, I will continue his remdesivir, he will need temporary placement in a long-term facility for short-term rehab services, patient is due to receive 1 more dose of remdesivir tomorrow #2 generalized weakness secondary to COVID-19 infection-patient is being seen by PT and OT Total clinical time spent by myself addressing the patient's medical issues, reviewing all of his data, and collaborating with patient's care team: 25 minutes Charges/Coding Visit Charges Inpatient E&M: 62537 [facility] Hosp L1
[2023-06-27 20:48] VITALS: BP 155/85; PULSE 73; RESP 20; TEMP 36.9; O2SAT 94
[2023-06-28 02:40] VITALS: BP 129/73; PULSE 74; RESP 16; TEMP 36.8; O2SAT 92
[2023-06-28 06:08] LABS: Absolute Lymphocyte Count 1.36 X10^3/uL (0.83-4.51); Absolute Neutrophil Count 8.1 X10^3/uL (2.0-7.7); Basophil# 0.07 X10^3/uL; Basophil% 0.6 % (0-1); Eosinophil# 0.29 X10^3/uL; Eosinophils% 2.6 % (0-5); Hematocrit 37.7 % (40-54); Hemoglobin 11.9 g/dL (13.0-16.5); Lymphocyte # 1.36 X10^3/ul (0.83-4.51); Lymphocyte % 12.1 % (19-41); Mean Corp Hgb Conc 31.6 g/dL (32-36); Mean Corpuscular Hgb 27.2 pg (27.0-32.0); Mean Corpuscular Volume 86.3 fL (80-94); Monocyte# 1.28 X10^3/uL; Monocyte% 11.4 % (0-10); NRBC Flagged by Analyzer 0 % (0-5); Neutrophil # 8.06 X10^3/uL (2.7-7.7); Neutrophil % 71.7 % (47-70); Platelet Count 456 K/mm3 (150-450); RBC Distribution Width CV 13.9 % (11.6-14.6); RBC Distribution Width SD 43.5 fl (35.1-43.9); Red Blood Count 4.37 M/mm3 (4.6-6.2); White Blood Count 11.2 K/mm3 (4.4-11.0)
[2023-06-28 06:34] LABS: ALB/GLOB Ratio 0.6 RATIO (0.9-2.4); AST(SGOT) 35 U/L (15-37); Alanine Aminotransfer ALT/SGPT 44 U/L (16-61); Albumin, Serum 2.5 g/dL (3.2-5.0); Alkaline Phosphatase 112 U/L (45-117); Anion Gap 4 (5-15); BUN 25 mg/dL (7-18); BUN/Creat Ratio 25.9 RATIO (10-20); Calcium,Total 8.6 mg/dL (8.5-10.1); Chloride 109 mmol/L (98-107); Creatinine, Serum 0.96 mg/dL (0.70-1.30); EST Glomerular Filtration Rate 80 mL/min (>60); Est Glom Filt Rate - Afr Amer 97 mL/min (>60); Globulin 4.4 g/dL (2.2-4.2); Glucose 112 mg/dL (74-106); Magnesium 2.3 mg/dL (1.6-2.6); Phosphorus 3.4 mg/dL (2.5-4.9); Potassium 4.2 mmol/L (3.5-5.1); Protein, Total 6.9 g/dL (6.4-8.2); Sodium Level 140 mmol/L (136-145)
--- NOTE | 2023-06-28 07:35 | RAD_ITS ---
EXAM: XR CHEST, 1 VIEW CLINICAL INDICATION: SOB TECHNIQUE: Frontal view of the chest. COMPARISON: XR Chest dated 06/22/2023 FINDINGS: LUNGS AND PLEURAL SPACES: Areas of bullous changes of both lungs again seen as well as scattered areas of pulmonary fibrosis. Blunting of the costophrenic sulci suggestive of pleural scarring. Dense nodule within the left lower lobe suggestive of a hamartoma or granuloma. Additional smaller calcified nodules throughout both lungs. HEART: Normal heart size. MEDIASTINUM: No mediastinal or hilar mass. BONES/JOINTS: No acute abnormality. RAD/Chest 1 View (Portable) IMPRESSION: No acute cardiopulmonary abnormality. COPD and pulmonary fibrosis. Electronically Signed: Hasmukh Castellon MD at 9:10 EDT ,
--- NOTE | 2023-06-28 09:03 | CASEMGMT ---
Discharge Planning Updates sent via [facility] to [facility]. Kathy Browning, Discharge Planning Asst.
[2023-06-28 09:12] VITALS: BP 140/69; PULSE 83; RESP 16; TEMP 36.6; O2SAT 94
[2023-06-28] MEDS: 0.9% Saline Lock 10 ML Syringe IV (09:23)
[2023-06-28] MEDS: Remdesivir 100 MG in 0.9% Normal Saline (250mL Bag) 230 ML 250 MG IV (09:23)
[2023-06-28] MEDS: Amox/Clavulanate 875 MG Tablet PO ×2 (09:24→21:40)
[2023-06-28] MEDS: dexAMETHasone 4 MG Tablet 6 MG PO (09:24)
[2023-06-28] MEDS: Pantoprazole Sodium 20 MG Tablet PO (09:25)
[2023-06-28] MEDS: Heparin Injection (Vial) 5,000 UNIT/ML VIAL 5000 UNIT SC ×2 (09:26→21:40)
--- NOTE | 2023-06-28 11:05 | CASEMGMT ---
Social Work Pt is not ready for discharge yet as per physician. D/C sales planning manager Kathy will let [facility] know. KAYDEN will continue to follow for discharge to [facility] once pt is medically ready and precert is attained. ORLY Hyde
--- NOTE | 2023-06-28 11:24 | CASEMGMT ---
Discharge Planning [place] has obtained auth. SW updated. Kathy Browning, Discharge Planning Asst.
[2023-06-28 14:40] VITALS: BP 132/80; PULSE 75; RESP 16; TEMP 36.7; O2SAT 94
--- NOTE | 2023-06-28 19:01 | PN.HOSP_ITS ---
Reason for Visit Reason for Visit: Generalized weakness/debility Subjective Subjective Mr. Ward is a 77-year-old white male who presented from home after sustaining a fall due to severe weakness. He lives by himself and upon presentation he complained of a nonproductive cough and that he had been ill for about 2 days. Vital signs on presentation were unremarkable. His CBC was overall unimpressive. His chemistry panel was unremarkable. Chest x-ray showed evidence of COPD with no acute process. His COVID-19 test was positive. He was admitted to medical surgery floor and placed on IV remdesivir and physical and Occupational Therapy were consulted to evaluate him. He slowly improved and remained on room air throughout his hospital course. Physical and Occupational Therapy recommended placement at discharge for ongoing rehab due to debility and weakness. And he has been accepted in prior Auth has been obtained for [facility]. He was noted to have an elevated white count with a cough that he reported to be productive as well as an elevated platelet count. I was concerned about acute phase reactant so started him on antibiotics and obtain cultures from his sputum. Patient states overall he is feeling much better and feels like he is getting stronger but is agreeable to placement for rehab prior to going home since he does live alone. Objective Data Objective Data Vital Signs: Vital Signs Temp Pulse Resp BP Pulse Ox O2 Del Method 98.0 F 75 16 132/80 H 94 Room Air 06/28/23 14:40 06/28/23 14:40 06/28/23 14:40 06/28/23 14:40 06/28/23 14:40 06/28/23 14:40 Oxygen Delivery Method Room Air Weight: 76.9 kg Body Mass Index (BMI) 22.4 Intake & Output: Intake and Output for Last 24 Hours 06/26/23 06/27/23 06/28/23 23:59 23:59 23:59 Intake Total 1000 / 1000 450 / 450 450 / 450 Output Total 100 / 100 225 / 225 Balance 1000 / 1000 350 / 350 225 / 225 Lab / Micro Data 06/28/23 05:48 06/28/23 05:48 Labs: Laboratory Results - last 24 hr 06/28/23 05:48: WBC 11.2 H, RBC 4.37 L, Hgb 11.9 L, Hct 37.7 L, MCV 86.3, MCH 27.2, MCHC 31.6 L, RDW Std Deviation 43.5, RDW Coeff of Jarod 13.9, Plt Count 456 H, MPV 9.0, Immature Gran % (Auto) 1.600 H, Neut % (Auto) 71.7 H, Lymph % (Auto) 12.1 L, [place] % (Auto) 11.4 H, Eos % (Auto) 2.6, Baso % (Auto) 0.6, Absolute Neuts (auto) 8.1 H, Absolute Lymphs (auto) 1.36, Nucleated RBC % 0, Sodium 140, Potassium 4.2, Chloride 109 H, Carbon Dioxide 27.0, Anion Gap 4 L, BUN 25 H, Creatinine 0.96, Estim Creat Clear Calc 71.20, Est GFR (MDRD) Af Amer 97, Est GFR (MDRD) Non-Af 80, BUN/Creatinine Ratio 25.9 H, Glucose 112 H, Calcium 8.6, Phosphorus 3.4, Magnesium 2.3, Total Bilirubin 0.30, AST 35, ALT 44, Alkaline Phosphatase 112, Total Protein 6.9, Albumin 2.5 L, Globulin 4.4 H, Albumin/Globulin Ratio 0.6 L Micro: Microbiology 06/24/23 11:18 Mucosa - Nose SARS-CoV-2, Influenza & RSV (PCR) - Final SARS-CoV-2 (COVID 19 PCR) Radiography Diagnostic Testing: Radiology Impression Chest X-Ray 06/28/23 07:35 IMPRESSION: No acute cardiopulmonary abnormality. COPD and pulmonary fibrosis. Electronically Signed: Hasmukh Castellon MD at 9:10 EDT , Physical Exam Const alert, oriented x3, no apparent distress, average body habitus and well nourished Constitutional Narrative: Older, white male, walking with therapy in his room, appears comfortable and nontoxic, very pleasant HEENT head/scalp atraumatic and moist oral mucous membranes HEENT Narrative: No thrush Head and Scalp: normocephalic Resp normal respiratory effort, no retractions, no use of accessory muscles and No clear to auscultation bilaterally Resp Narrative: Few squeaking sounds with inspiration and expiration diffusely Auscultation: Negative for rales, rhonchi or wheezes Cardio regular rate, regular rhythm, S1 normal heart sound, S2 normal heart sound, no murmurs, no rub, no gallops and no clicks GI normal to inspection, nondistended, normoactive bowel sounds, soft to palpation and non-tender Extremity no clubbing, cyanosis or edema Extremity Narrative: Pedal pulses are 2+ Neuro oriented x3, moves all extremities and no focal motor deficits Neuro Narrative: Generalized weakness noted and patient ambulating with a wheeled walker with contact guard assist Speech: speech normal Psych affect normal Psych Narrative: Extremely pleasant, interacts appropriately Assessment & Plan Assessment/Plan (1) Contusion of hip, left: (2) Weakness: (3) Falls: (4) COVID-19: PLAN: Plan Acute COVID-19 infection -Remdesivir completed -Will start Decadron but discontinue at discharge if patient remains on room air -Concerned about superimposed infection with white count trending up and him not being on steroids prior to this -Seems to be improving with regards to COVID Leukocytosis/thrombocytosis -These are both acute and new -Concerning for infection -Check sputum culture and start Augmentin -Repeat CBC in a.m. Generalized weakness/falls/debility -Due to the above -Patient lives alone -Functional status is improving however he still is high risk for readmission due to fall -He has been accepted at [facility] with plans for discharge tomorrow as long as he remains medically stable Chronic anemia -Hemoglobin is stable with no signs of significant change GERD -Continue home Protonix History of tobacco abuse -Recommend ongoing cessation DVT prophylaxis -Continue subcu heparin twice daily CODE STATUS -Full code Charges/Coding Visit Charges Inpatient E&M: 17802 Subs Hosp L2
[2023-06-28 21:33] VITALS: BP 163/89; PULSE 72; RESP 16; TEMP 36.4; O2SAT 93
[2023-06-29 05:11] VITALS: BP 146/79; PULSE 64; RESP 18; TEMP 36.3; O2SAT 94
[2023-06-29 07:16] LABS: Absolute Lymphocyte Count 1.01 X10^3/uL (0.83-4.51); Absolute Neutrophil Count 14.3 X10^3/uL (2.0-7.7); Basophil# 0.05 X10^3/uL; Basophil% 0.3 % (0-1); Eosinophil# 0.01 X10^3/uL; Eosinophils% 0.1 % (0-5); Hematocrit 37.3 % (40-54); Hemoglobin 11.8 g/dL (13.0-16.5); Lymphocyte # 1.01 X10^3/ul (0.83-4.51); Mean Corp Hgb Conc 31.6 g/dL (32-36); Mean Corpuscular Hgb 27.1 pg (27.0-32.0); Mean Corpuscular Volume 85.6 fL (80-94); Mean Platelet Vol. 9.2 fl (6.2-12.0); Monocyte# 1.28 X10^3/uL; Monocyte% 7.6 % (0-10); NRBC Flagged by Analyzer 0 % (0-5); Neutrophil % 84.9 % (47-70); Platelet Count 470 K/mm3 (150-450); RBC Distribution Width CV 13.8 % (11.6-14.6); Red Blood Count 4.36 M/mm3 (4.6-6.2); White Blood Count 16.8 K/mm3 (4.4-11.0)
[2023-06-29 07:46] LABS: Anion Gap 9 (5-15); BUN 25 mg/dL (7-18); BUN/Creat Ratio 31.9 RATIO (10-20); Calcium,Total 9.1 mg/dL (8.5-10.1); Chloride 108 mmol/L (98-107); Creatinine, Serum 0.78 mg/dL (0.70-1.30); EST Glomerular Filtration Rate 102 mL/min (>60); Est Glom Filt Rate - Afr Amer 124 mL/min (>60); Estimated Creatinine Clearance 85.44 ml/min; Glucose 133 mg/dL (74-106); Potassium 4.4 mmol/L (3.5-5.1); Sodium Level 141 mmol/L (136-145)
[2023-06-29 10:02] VITALS: BP 134/77; PULSE 68; RESP 16; TEMP 36.3; O2SAT 95
[2023-06-29] MEDS: Pantoprazole Sodium 20 MG Tablet PO (10:13)
[2023-06-29] MEDS: Heparin Injection (Vial) 5,000 UNIT/ML VIAL 5000 UNIT SC (10:13)
[2023-06-29] MEDS: Amox/Clavulanate 875 MG Tablet PO (10:13)
[2023-06-29] MEDS: amLODIPine 5 MG Tablet PO (10:17)
--- NOTE | 2023-06-29 12:27 | PCM.DC.SUM ---
Providers Date of Admission: 06/24/23 Date of Discharge: 06/29/23 Primary Care Physician: Dr. Delano Sharma MD Reason For Visit: ACUTE DEBILITY, COVID Diagnosis Discharge Diagnosis (1) Contusion of hip, left: Status: Acute Code(s): S70.02XA - Contusion of left hip, initial encounter (2) Weakness: Status: Acute Code(s): R53.1 - Weakness (3) Falls: Status: Acute Code(s): W19.XXXA - Unspecified fall, initial encounter (4) COVID-19: Status: Acute Code(s): U07.1 - COVID-19 Medications at Discharge Home Medications protonix 20 mg PO DAILY 06/24/23 acetaminophen 325 mg tablet 650 mg (2 x 325 mg) PO Q6H PRN PRN Pain 1-10 Or Fever >100.7 #0 tabs 06/29/23 amlodipine 5 mg tablet 5 mg PO DAILY #0 tabs 06/29/23 amoxicillin 875 mg-potassium clavulanate 125 mg tablet 1 tab PO BID #12 tabs 06/29/23 Hospital Course Operations None Procedures EKG and - (Hip and pelvis x-ray/chest x-ray) Summary of Care Provided Minutes Spent on Discharge: 37 Hospital Course: Mr. Ward is a 77-year-old white male who presented from home after sustaining a fall due to severe weakness. He lives by himself and upon presentation he complained of a nonproductive cough and that he had been ill for about 2 days. Vital signs on presentation were unremarkable. His CBC was overall unimpressive. His chemistry panel was unremarkable. Chest x-ray showed evidence of COPD with no acute process. His COVID-19 test was positive. He was admitted to medical surgery floor and placed on IV remdesivir and physical and Occupational Therapy were consulted to evaluate him. He slowly improved and remained on room air throughout his hospital course. Physical and Occupational Therapy recommended placement at discharge for ongoing rehab due to debility and weakness. We did note him to have an elevated white count with a thrombocytosis. Further workup was done at that time sputum culture shows only normal letty. After sputum was sent we started him on Augmentin. He denied any significant cough or sputum production and felt like he was doing quite well. His blood pressure was noted to be consistently elevated so we did start him on Norvasc 5 mg a day and he did have improved blood pressure readings with this addition. He was expected at [facility] for ongoing rehab with the anticipation of discharging to home and self-care following his rehab stay. We obtained pre-CERT from the insurance company on 06/28/2023 and given his clinical stability with regards to symptoms discharged him to [facility] on 06/29/2023. He remained on room air and had no complaints. I do recommend he follow-up with his primary care physician within 1 to 2 weeks after discharge from the nursing facility. He also will need a repeat CBC and BMP in 1 week. New prescriptions at discharge were for Augmentin to complete a 7-day course of oral antibiotics and for his Norvasc to address his blood pressure issues. Discharge diagnoses: Acute COVID-19 infection-resolving Leukocytosis Thrombocytosis Hypertension Generalized weakness Falls Debility Chronic anemia-stable GERD History of tobacco abuse Physical Exam Const alert, oriented x3, no apparent distress, average body habitus, no limitations, healthy appearing and well nourished Constitutional Narrative: Older, white male, sitting up in a chair at the bedside, watching television, appears comfortable and nontoxic, very pleasant, on room air General Appearance: cooperative, comfortable, well kempt and well developed Orientation / Consciousness: awake, oriented to person, oriented to place and oriented to time Exam Limitations: no limitations HEENT normocephalic, head/scalp atraumatic and moist oral mucous membranes HEENT Narrative: Mild hearing loss, Mallampati is 2, no thrush Eyes PERRL, EOMs intact bilaterally and conjunctivae normal Eyes Narrative: No scleral icterus Neck no lymphadenopathy and supple General: trachea midline Resp normal respiratory effort, no retractions, no use of accessory muscles and No clear to auscultation bilaterally Resp Narrative: Diminished but clear Auscultation: Negative for rales, rhonchi or wheezes Cardio regular rate, regular rhythm, S1 normal heart sound, S2 normal heart sound, no murmurs, no rub, no gallops and no clicks GI normal to inspection, nondistended, normoactive bowel sounds, soft to palpation, non-tender and non-distended Extremity no clubbing, cyanosis or edema Extremity Narrative: Pedal pulses are 2+ Skin no rashes or lesions noted, no wounds, skin turgor normal and no jaundice Skin Narrative: Skin is thinning with scattered ecchymosis in various stages of healing but no significant lesions noted Neuro oriented x3, CN's II-XII intact bilaterally, moves all extremities, no focal motor deficits and no sensory deficits noted Sensorium / Orientation: awake, alert and oriented to person Speech: speech normal Psych affect normal Psych Narrative: Extremely pleasant, interacts appropriately Weight / BMI Weight Weight: 76.9 kg Body Mass Index (BMI) 22.4 ABG / Lab / Microbiology Data 06/29/23 07:01 06/29/23 07:01 Laboratory: Laboratory Results - last 24 hr 06/29/23 07:01: WBC 16.8 H, RBC 4.36 L, Hgb 11.8 L, Hct 37.3 L, MCV 85.6, MCH 27.1, MCHC 31.6 L, RDW Std Deviation 43.0, RDW Coeff of Jarod 13.8, Plt Count 470 H, MPV 9.2, Immature Gran % (Auto) 1.100 H, Neut % (Auto) 84.9 H, Lymph % (Auto) 6.0 L, Roberts % (Auto) 7.6, Eos % (Auto) 0.1, Baso % (Auto) 0.3, Absolute Neuts (auto) 14.3 H, Absolute Lymphs (auto) 1.01, Nucleated RBC % 0, Sodium 141, Potassium 4.4, Chloride 108 H, Carbon Dioxide 24.0, Anion Gap 9, BUN 25 H, Creatinine 0.78, Estim Creat Clear Calc 85.44, Est GFR (MDRD) Af Amer 124, Est GFR (MDRD) Non-Af 102, BUN/Creatinine Ratio 31.9 H, Glucose 133 H, Calcium 9.1 Microbiology: Microbiology 06/28/23 10:48 Sputum, Expectorated/Coughed Respiratory Culture - Preliminary Appears to be normal respiratory letty. Further studies to follow. 06/24/23 11:18 Mucosa - Nose SARS-CoV-2, Influenza & RSV (PCR) - Final SARS-CoV-2 (COVID 19 PCR) D/C Instructions Discharge Diet: No restrictions Discharge Activity: Return to Normal Activity Meaningful Use Info Meaningful Use Diagnoses (Choose all that apply): None applicable Discharge Plan Admission Admit Date/Time: 06/24/23 17:39 Primary Reason for Your Visit: Generalized weakness/debility Attending Provider: Shirley Norman Primary Care Provider: Delano Sharma Consulting Providers: Orlando Knowles Discharge Orders/Prescriptions Prescriptions: New acetaminophen 325 mg Tablet 650 mg PO Q6H PRN PRN (Reason: Pain 1-10 Or Fever >100.7) Qty: 0 0RF amlodipine 5 mg Tablet 5 mg PO DAILY Qty: 0 0RF amoxicillin-pot clavulanate 875-125 mg Tablet 1 tab PO BID Qty: 12 0RF Continued protonix 20 mg PO DAILY Referrals / Follow Up: Delano Sharma MD [Primary Care Provider] - See Referral Note (1 to 2 weeks after discharge from senior living facility) Care Physician,No Primary [Non-Staff] - Disposition Disposition (needs filled in before D/C Order can be placed): [facility] Charges/Coding Visit Charges Inpatient E&M: 12760 SNF Disch >30 Min
--- NOTE | 2023-06-29 12:44 | PCM.TXEXTCAR ---
Diet Diet Order/Speech Therapy: 06/24/23 14:22 Diet: Regular - General Food consistency:: Regular Liquid Consistency:: Regular/Thin Type of Dietary Supplement:: Ensure Compact Is pt able to select menu?: No Routine Orders/Code Status Suppository Frequency: Daily PRN O2 Frequency: PRN Keep PO Greater than or Equal to (%): 89 Routine Lab Work: CBC (1 week) and BMP (1 week) Code Status: Full Code Wound(s) scabbed abrasions to right knee/hayes: Wound Type: Abrasion Therapies Weight Bearing: Full weight bearing Physical Therapy: Eval and Treat Occupational Therapy: Eval and Treat Problem/Diagnosis (1) Contusion of hip, left: Status: Acute Code(s): S70.02XA - Contusion of left hip, initial encounter (2) Weakness: Status: Acute Code(s): R53.1 - Weakness (3) Falls: Status: Acute Code(s): W19.XXXA - Unspecified fall, initial encounter (4) COVID-19: Status: Acute Code(s): U07.1 - COVID-19 Allergies/Procedures Done in Hospital Allergies No Known Allergies Allergy (Verified 06/24/23 10:21) Procedures: - (Hip and pelvis x-ray/chest x-ray) Type of Care/Length of Stay Estimated LOS: Convalescent Care Less Than 30 days Type of Care Needed: Skilled Rehab Potential: Good Prognosis: Good Additional Orders/Day of Discharge Day of Discharge: 06/29/23 Dietary and Speech Recommendations Dietitian Recommendations/Changes: continue regular diet w/ ensure compact TID w/ meals Discharge Plan Admission Admit Date/Time: 06/24/23 17:39 Primary Reason for Your Visit: Generalized weakness/debility Attending Provider: Shirley Norman Primary Care Provider: Delano Sharma Consulting Providers: Orlando Knowles Discharge Orders/Prescriptions Prescriptions: New acetaminophen 325 mg Tablet 650 mg PO Q6H PRN PRN (Reason: Pain 1-10 Or Fever >100.7) Qty: 0 0RF amlodipine 5 mg Tablet 5 mg PO DAILY Qty: 0 0RF amoxicillin-pot clavulanate 875-125 mg Tablet 1 tab PO BID Qty: 12 0RF Continued protonix 20 mg PO DAILY Referrals / Follow Up: Delano Sharma MD [Primary Care Provider] - See Referral Note (1 to 2 weeks after discharge from [facility] facility) Care Physician,No Primary [Non-Staff] - Disposition Disposition (needs filled in before D/C Order can be placed): [facility]
--- NOTE | 2023-06-29 13:18 | CASEMGMT ---
Social Work Pt discharging to [facility] today. KAYDEN completed the hospital exemption, and reginald Chavez/[place]a [place] planning manager is setting up the discharge. ORLY Hyde
--- NOTE | 2023-06-29 13:30 | CASEMGMT ---
Discharge Planning Discharge orders, signed med list, and transport time sent to [facility] via [facility]. Physicians will transport patient by wheelchair at 2p. Nursing, SW, and patient updated. Not able to [place] [facility] [place]poa (vm not set up). Kathy Browning, Discharge Planning Asst.
--- NOTE | 2023-06-29 14:12 | NURSING ---
[facility] to p/u pt
--- NOTE | 2023-06-29 14:53 | PHA.DC.MR.R ---
Pharmacy [place] Med Reconciliation Pharmacy Service has performed discharge medication reconciliation for this patient. The patient's discharge medication list was reviewed for discrepancies and discrepancies were resolved. Medications at Discharge Home Medications protonix 20 mg PO DAILY 06/24/23 acetaminophen 325 mg tablet 650 mg (2 x 325 mg) PO Q6H PRN PRN Pain 1-10 Or Fever >100.7 #0 tabs 06/29/23 amlodipine 5 mg tablet 5 mg PO DAILY #0 tabs 06/29/23 amoxicillin 875 mg-potassium clavulanate 125 mg tablet 1 tab PO BID #12 tabs 06/29/23
== END 2023-06-29 14:17 | DRG 179 ==
LOC: ED 12:31 → MS3 13:38
PROVIDERS: Admitting Provider Internal Medicine; Emergency Provider Emergency Medicine; PCP Family Medicine; Visit Provider Internal Medicine
DX: U07.1 COVID-19 (principal); D72.829 Elevated white blood cell count, unspecified; I10 Essential (primary) hypertension; D75.839 Thrombocytosis, unspecified; S20.229A Contusion of unspecified back wall of thorax, initial encounter; J44.9 Chronic obstructive pulmonary disease, unspecified; S70.02XA Contusion of left hip, initial encounter; K21.9 Gastro-esophageal reflux disease without esophagitis; S80.211A Abrasion, right knee, initial encounter; S40.012A Contusion of left shoulder, initial encounter; W19.XXXA Unspecified fall, initial encounter; R29.6 Repeated falls; R53.1 Weakness; R53.81 Other malaise; Z87.891 Personal history of nicotine dependence
CPT/HCPCS: 36415; 71045; 71046; 72100; 73030; 73502; 80048; 80053; 81001; 83735; 84075; 84100; 85025; 85027; 87070; 87205; 87631; 93005; 94640; 94668; 97110; 97116; 97162; 97166; 97530; 97535; 97803; 99252; 99284; 99285; J7030; J7050; P9612; A4216; G0463; J0248